=== PATIENT | male | born 1945 | race Caucasian/White ===

== ENCOUNTER 2023-11-02 13:59 | Observation (INO) | payer MEDICARE, SELFPAY ==
[2023-11-02] VITALS (9 sets, daily range): BP systolic 146–187; BP diastolic 81–96; BMI 32.3; BMI 31.4
[2023-11-02 11:12] LABS: % Basophils 0.5 % (0-2); % Eosinophils 1.6 % (0-6); % Immature Granulocytes 0.3 % (0-0.5); % Lymphocytes 25.4 % (20.5-51.1); % Monocytes 7.5 % (1.7-9.3); % Neutrophils 64.7 % (42.2-75.2); Absolute Eosinophils 0.1 10^3/uL (0-0.7); Absolute Lymphocytes 1.9 10^3/uL (1.2-3.4); Absolute Monocytes 0.6 10^3/uL (0.1-0.6); Absolute Neutrophils 4.9 10^3/uL (1.4-6.5); Hematocrit 45.2 % (39.0-52.0); Mean Corp Hgb Conc. 35.4 g/dL (33.0-37.0); Mean Corpuscular Hgb 31.3 pg (27.0-31.0); Mean Corpuscular Volume 88.5 fL (80.0-94.0); Mean Platelet Volume 9.7 fL (7.4-10.4); Nucleated Red Blood Cells % 0 % (-); Platelet Count 164 10^3/uL (130-400); Red Blood Cell Count 5.11 10^6/uL (4.70-6.10); Red Cell Dist. Width 12.9 % (11.5-14.5); White Blood Cell Count 7.6 10^3/uL (4.8-10.8)
[2023-11-02 11:36] LABS: Troponin I < 0.012 ng/ml
--- NOTE | 2023-11-02 11:49 | ED.GENMED ---
History of Present Illness
<Andra Deleon PA-C - Last Filed: 11/02/23 15:57>
General
Chief Complaint: Heart Rate Problem
Source: patient
Exam Limitations: none
Time Seen by Provider: 11/02/23 10:53
Nursing documentation reviewed up to this point in time: agreed with
Travel History
Have you had any contact with someone who has COVID-19?: No
Do you have any symptoms of coronavirus? Fever > 100 degrees, chills, cough, shortness of breath, sore throat, loss of taste or smell, muscle aches, or headache?: No
History of Present Illness
History of Present Illness:
78-year-old male with history of a CABG previously at home [facility] followed by yarn dry room worker with [facility] presents for nonexertional left upper chest pain that started at 7 AM this morning while patient was at rest. Patient says he was
already awake when this pain started and it felt like a dull ache. He says it felt similar to his previous heart attack which was not a crushing chest pain. Patient says he took his vital signs and knew his heart rate was going up into the 80s
which is normally in the 50s or 60s. Patient is very compliant with his Eliquis. At the time of the symptoms he did not get sweaty or nauseated or feel short of breath but he was feeling extremely anxious so at that time he took 25 mg of
metoprolol, 0.5 of Xanax and a nitroglycerin sublingual tab. Within about 20 minutes his symptoms fully resolved. He did watch the monitor of his blood pressure showing that his blood pressure was improving and his heart rate was getting better
however this same type of episode happened 2 days ago but was associated with diaphoresis and nausea at that time. He took the same medications and it did go away. Because this happened twice in a matter of 2 days he knew he needed to be checked.
Patient feels extremely anxious being here. He does have an essential tremor which is made worse when he is also anxious. Patient is under a lot of stress, his son has been on disability and he has been helping to care for him. The patient's son
lost his daughter because of some family stresses so patient has been more anxious than usual. He did not call his yarn dry room worker to tell him he was coming. He does have an appointment within the next month for his 6-month checkup. Patient has not
noticed any fevers or chills, sore throat, cough, abdominal pain, vomiting, diarrhea, leg swelling
Past History
<Andra Deleon PA-C - Last Filed: 11/02/23 15:57>
Past History
ED Past Medical History: CAD, HTN and Hypercholesterolemia
ED Past Surgical History: Cardiac (CABG)
Social History
Tobacco: Non-smoker
Alcohol: None
Drug: None
Personal:
Living: with family
Review of Systems
<Andra Deleon PA-C - Last Filed: 11/02/23 15:57>
Review of Systems
Allergies reviewed?: Yes
All Other Systems: Not applicable
Phy Exam
<KAREN Stratton Last Filed: 11/02/23 15:57>
Physical Exam
Physical Exam:
GENERAL: Alert , anxious
EYE: pupils equal and reactive
NECK: Supple
ENT: o/p clr, mmm.
CARDIAC: Regular rate and rhythm .
LUNGS: Clear breath sounds bilaterally, no acute respiratory distress, no wheezes/rales/rhonchi
chest wall: nontender, normal skin
ABDOMEN: Soft, without focal tenderness, no r/g, no cvat, normal bowel sounds
NEUROLOGICAL: Alert and oriented, no focal neuro deficits, patient has an essential tremor which is worse when he is anxious
SKIN: Warm and dry, skin intact.
MUSCULOSKELETAL: No edema, well perfused. neg arian's sign
PSYCH: Normal and appropriate interaction.
Course
<KAREN Stratton Last Filed: 11/02/23 15:57>
Orders/Labs/Results
Orders:
Orders
11/02/23 Breakfast
Cholesterol Lowering
At Your Request: Limited Participation
Cholesterol Lowering: Sodium, 2 Gram
11/02/23 10:24
EKG [Electrocardiogram (*1)] Urgent
Reason for Study: Chest Pain
EKG- Treatment ONCE
11/02/23 10:56
Complete Blood Count/With Diff Urgent
Glycohemoglobin (HgbA1c) Urgent
Lactate Level [Lactic Acid] Q4H
Troponin I Urgent
11/02/23 11:22
Lorazepam [Ativan] 0.5 mg IV NOW STA
11/02/23 11:23
CR Chest - 2 Views Urgent
Comment:
Reason For Exam: left upper chest pain
11/02/23 11:50
0.9% Sodium Chloride 1000 ml [Nss] 1,000 ml IV BOLUS
11/02/23 12:34
Comprehensive Metabolic Panel Routine
11/02/23 13:33
Admit/Transfer Patient As Directed
Co-Sign Provider:
Level of Care: Observation services
Assign to:: Telemetry
Physician / Group: cm christensen
Diagnosis: chestp ain
Reason for Telemetry: Chest Pain syndromes
Date to Stop Telemetry: 11/04/23
Time to Stop Telemetry: 11:00
Code Status As Directed
Resuscitation Status: Full Code
11/02/23 13:38
Aspirin Chewable [Low Strength Aspirin] 162 mg PO NOW STA
Pantoprazole [Protonix] 40 mg PO NOW STA
11/02/23 14:12
Lactate Level [Lactic Acid] Q4H
11/02/23 15:45
Troponin I Q3H
Comment: at admit & Q3H for 3 total including ED draws, obtain ECG with each level
Alprazolam [Xanax] 0.5 mg PO DAILYPRN PRN
Nitroglycerin Sublingual [Nitrostat (Sublingual)] 0.4 mg SL [id number] PRN
11/02/23 15:45
CARDIOLOGY CONSULT Routine
Consulting Provider: Terrance Pagan
Was physician already notified: Yes
Activity As Directed
Activity Level: As Tolerated
Compression Sleeves [Pneumatic Compression Sleeves] As Directed
Type: Thigh high
ECG as needed As Directed
ECG as needed for:: Chest Pain
Comment: with chest pain x 2 episodes.
INT (Intravenous Needle Therapy) As Directed
Comment: maintain peripheral IV access
Intake/ Output As Directed
Frequency: Per unit guidelines
Vital Signs As Directed
Frequency: q4h
Weight As Directed
Frequency: Daily
DX Deep Vein Thrombosis Video Routine
11/02/23 18:45
Troponin I Q3H
Comment: at admit & Q3H for 3 total including ED draws, obtain ECG with each level
11/02/23 20:00
Apixaban [Eliquis] 5 mg PO BID
Metoprolol [Lopressor] 25 mg PO BID
Pantoprazole [Protonix] 40 mg PO BID
11/03/23 06:00
EKG [Electrocardiogram (*1)] IN AM
Reason for Study: Chest Pain
Basic Metabolic Panel IN AM
Cardiovascular Evaluation IN AM
Complete Blood Count/No Diff IN AM
11/04/23 11:00
DC Protocol for Telemetry ONCE
Abnormal Lab Results
11/02/23 11/02/23
10:56 12:34
MCH 31.3 H pg
(27.0-31.0)
Chloride 108 H mmol/L
(98-107)
Glucose 108 H mg/dl
(70-99)
Lactic Acid 3.0 H mmol/L
(0.7-2.0)
11/02/23 10:56
11/02/23 12:34
Vital Signs
Initial and Last Documented VS:
Initial Vital Signs
Temp Pulse Resp BP Pulse Ox
98 F 57 16 187/95 98
11/02/23 10:21 11/02/23 10:21 11/02/23 10:21 11/02/23 10:21 11/02/23 10:21
Last Documented Vital Signs
Temp Pulse Resp BP Pulse Ox
98 F 62 20 185/83 95
11/02/23 10:21 11/02/23 14:15 11/02/23 14:15 11/02/23 14:00 11/02/23 14:00
<Hola Beckwith, DO - Last Filed: 11/02/23 12:30>
Orders/Labs/Results
Orders:
Orders
11/02/23 Breakfast
Cholesterol Lowering
At Your Request: Limited Participation
Cholesterol Lowering: Sodium, 2 Gram
11/02/23 10:24
EKG [Electrocardiogram (*1)] Urgent
Reason for Study: Chest Pain
EKG- Treatment ONCE
11/02/23 10:56
Complete Blood Count/With Diff Urgent
Glycohemoglobin (HgbA1c) Urgent
Lactate Level [Lactic Acid] Q4H
Troponin I Urgent
11/02/23 11:22
Lorazepam [Ativan] 0.5 mg IV NOW STA
11/02/23 11:23
CR Chest - 2 Views Urgent
Comment:
Reason For Exam: left upper chest pain
11/02/23 11:50
0.9% Sodium Chloride 1000 ml [Nss] 1,000 ml IV BOLUS
11/02/23 12:34
Comprehensive Metabolic Panel Routine
11/02/23 13:33
Admit/Transfer Patient As Directed
Co-Sign Provider:
Level of Care: Observation services
Assign to:: Telemetry
Physician / Group: cm christensen
Diagnosis: chestp ain
Reason for Telemetry: Chest Pain syndromes
Date to Stop Telemetry: 11/04/23
Time to Stop Telemetry: 11:00
Code Status As Directed
Resuscitation Status: Full Code
11/02/23 13:38
Aspirin Chewable [Low Strength Aspirin] 162 mg PO NOW STA
Pantoprazole [Protonix] 40 mg PO NOW STA
11/02/23 14:12
Lactate Level [Lactic Acid] Q4H
11/02/23 15:45
Troponin I Q3H
Comment: at admit & Q3H for 3 total including ED draws, obtain ECG with each level
Alprazolam [Xanax] 0.5 mg PO DAILYPRN PRN
Nitroglycerin Sublingual [Nitrostat (Sublingual)] 0.4 mg SL [id number] PRN
11/02/23 15:45
CARDIOLOGY CONSULT Routine
Consulting Provider: Terrance Pagan
Was physician already notified: Yes
Activity As Directed
Activity Level: As Tolerated
Compression Sleeves [Pneumatic Compression Sleeves] As Directed
Type: Thigh high
ECG as needed As Directed
ECG as needed for:: Chest Pain
Comment: with chest pain x 2 episodes.
INT (Intravenous Needle Therapy) As Directed
Comment: maintain peripheral IV access
Intake/ Output As Directed
Frequency: Per unit guidelines
Vital Signs As Directed
Frequency: q4h
Weight As Directed
Frequency: Daily
DX Deep Vein Thrombosis Video Routine
11/02/23 18:45
Troponin I Q3H
Comment: at admit & Q3H for 3 total including ED draws, obtain ECG with each level
11/02/23 20:00
Apixaban [Eliquis] 5 mg PO BID
Metoprolol [Lopressor] 25 mg PO BID
Pantoprazole [Protonix] 40 mg PO BID
11/03/23 06:00
EKG [Electrocardiogram (*1)] IN AM
Reason for Study: Chest Pain
Basic Metabolic Panel IN AM
Cardiovascular Evaluation IN AM
Complete Blood Count/No Diff IN AM
11/04/23 11:00
DC Protocol for Telemetry ONCE
Abnormal Lab Results
11/02/23 11/02/23
10:56 12:34
MCH 31.3 H pg
(27.0-31.0)
Chloride 108 H mmol/L
(98-107)
Glucose 108 H mg/dl
(70-99)
Lactic Acid 3.0 H mmol/L
(0.7-2.0)
11/02/23 10:56
11/02/23 12:34
Vital Signs
Initial and Last Documented VS:
Initial Vital Signs
Temp Pulse Resp BP Pulse Ox
98 F 57 16 187/95 98
11/02/23 10:21 11/02/23 10:21 11/02/23 10:21 11/02/23 10:21 11/02/23 10:21
Last Documented Vital Signs
Temp Pulse Resp BP Pulse Ox
98 F 62 20 185/83 95
11/02/23 10:21 11/02/23 14:15 11/02/23 14:15 11/02/23 14:00 11/02/23 14:00
<Andra Deleon PA-C - Last Filed: 11/02/23 15:57>
MDM/Problems Addressed
Differential Diagnosis Includes:
angina, acs, anxiety .chest wall pain,
MDM/Problems Addressed:
78 y/o M with h/o CABG, anxiety, tremor; here with exertional dyspnea, chest pain at rest 2 days ago and today at 7 am; relief with nitro, metoprolol and xanax all used at once;
2nd episode in 2 days; concerning the patient
he is under a lot of emotional stress
has essential tremor which gets worse when he is more stressed
ekg nonischemic, trop neg, vitals stable
cxr indep reviewed by me and neg
dr. beckwith saw him, pt doesn't feel comfortable going home cards consult and echo; first trop neg; under alot of stress and very anxious;
<Andra Deleon PA-C - Last Filed: 11/02/23 15:57>
*Critical Care Note
Total Time (30-74mins, 75-104mins- exclusive of procedures): Not Applicable
ED Attending Note
<Andra Deleon PA-C - Last Filed: 11/02/23 15:57>
-
Portions of this chart may have been created with voice recognition software.� Occasional wrong word or��sound alike� substitutions may have occurred due to the inherent limitations of voice recognition software.
<Hola Beckwith, DO - Last Filed: 11/02/23 12:30>
ED Attending Note
Patient seen and examined by attending physician: Yes
I performed the substantive portion of visit, reviewed & personally made and approve the management plan that is documented in note by myself or SIDDHARTHA.: Yes
ED Attending Note:
I have seen and evaluated the patient with a [id number] encounter. I have spoken to the advance practicer provider and involved in the medical history, the physical exam, medical decision making.
Evaluation and management service: agree unless noted differently below.
Results interpretation: agree unless noted differently below.
Focused HPI: 78-year-old male presenting with intermittent chest pain. Did appear to occur randomly a few days ago. At that time, he took nitro and benzodiazepine and symptoms appear to have improved. Happened again earlier today rest which
improved with medications. Patient is worried that it could be his heart given that is a history of CABG. Patient states he can normally exercise without difficulty but states he became short of breath with his recent exercise
Physical exam: Sitting in bed comfortably. Mild pitting edema to lower extremities. Lungs clear. Heart regular rate and rhythm
Medical Decision Making: Given his history and exertional shortness of breath, will admit
Discharge Plan
Departure
Patient Disposition: Admit
Date of Disposition: 11/02/23
Time of Disposition: 12:34
Admit to: Telemetry
Presentation/result/management discussed w/ accepting MD/DO: Hospitalist
Condition: Fair
Covid-19: Not Applicable
Discharge Problem:
Chest pain, Exertional dyspnea
Interventions
Interventions:
*Risk Screen - Suicide Last Done: 11/02/23 10:21
*General Assessment Last Done: 11/02/23 10:21
*Neglect/Abuse Screening Last Done: 11/02/23 10:21
ED- Fall Risk Assessment Last Done: 11/02/23 15:54
*ED COVID-19 Vaccine History Last Done: 11/02/23 15:54
*Nursing Disposition Last Done: 11/02/23 15:54
ED- Cardiac Assessment Last Done: 11/02/23 12:00
ED- Pulmonary Assessment Last Done: 11/02/23 12:00
[2023-11-02] MEDS: ATIVAN 0.5 MG IV (11:58)
[2023-11-02] MEDS: NSS 1000 IV (12:02)
[2023-11-02 12:49] LABS: ALT (SGPT) 20 U/L (0-50); AST (SGOT) 23 U/L (17-59); Alkaline Phosphatase 55 U/L (38-126); Blood Urea Nitrogen 14 mg/dl (9-20); Calcium 9.7 mg/dl (8.4-10.2); Carbon Dioxide 29 mmol/L (22-30); Chloride 108 mmol/L (98-107); Estimated Creatinine Clearance 93 ml/min; Glucose 108 mg/dl (70-99); Potassium 4.6 mmol/L (3.5-5.1); Sodium 140 mmol/L (135-145); Total Bilirubin 0.8 mg/dl (0.2-1.3); Total Protein 6.6 g/dl (6.3-8.2); eGFR > 60.00
--- NOTE | 2023-11-02 13:00 | HPS.HSE ---
Addendum entered and electronically signed by Winter Latif MD 11/02/23 16:33:
patient requests ativan instead of xanax for anxiety - changed in chart
Addendum entered and electronically signed by Winter Latif MD 11/02/23 14:32:
etiology of elevated lactate unclear, may be related to tachypnea from anxiety. patient does not appear to be dehydrated, no e/o sepsis.
s/p 1L fluid bolus, will continue to monitor.
Addendum entered and electronically signed by Winter Latif MD 11/02/23 14:29:
I saw and examined the patient.
The DESIGN LEAD's note was reviewed and I agree with the note.
Comment:
Mr. Alejandro Traylor is a 78 yo man with hx CAD s/p CABG 15 years ago, PE on Eliquis, CAD, HTN, HLD presented to the ER with left-sided chest discomfort non-radiating that occurred when sitting this morning and worsened when he walked around. H etook a
nitro and metoprolol and pain resolved. Currently patient is pain free. Triage VS: T 98, P 57, RR 16, BP 187/95, SpO2 98%. Labs unremarkable, initial Troponin negative.
CXR
IMPRESSION:
No acute cardiopulmonary process.
Hiatal hernia again noted.
EKG: sinus bradycardia with 1st degree AV block, LVH, no ST elevation/depression.
Given cardiac risk factors and history that pain worsened with exertion and was relieved with nitro, patient will be admitted for ACS rule out. Trend Troponins. Cardiology consult. If Troponin becomes elevated, hold evening Eliquis and start IV
heparin gtt.
Patient also describes a lot of anxiety in his life and took a Xanax this morning, was given lorazepam in the ER.
Original Note:
Family Physician
-
Family Physician: Hola Chapman
Chief Complaint
-
chest pain
History of Present Illness
78-year-old male with history of a CABG. pulmonary embolism, coronary artery disease, hypertension, hyperlipidemia presented to us with left-sided nonradiating chest pain while he was sitting on a chair this morning. Patient stated it got little
worse when he got up and move around. Denied any short of breath. Patient felt the same pain 2 days ago which resolved with nitroglycerin, metoprolol. At present he does not have any pain. Pain resolved after taking nitro, metoprolol, Eliquis.
Patient denies any headache, dizziness, syncopal episode. Patient denies any abdominal pain, nausea, vomiting, diarrhea. Patient denies dysuria hematuria. Patient is under a lot of stress. Patient follows cardiology at [facility].
Troponin negative, labs stable. Admitted for further management
Medical History
Past Medical History
Past Medical History: Reports Other
Additional Past Medical History:
Hypertension
Coronary artery disease
Hyperlipidemia
Pulmonary embolism
Past Surgical History: Reports Other
Additional Past Surgical History:
Coronary artery bypass graft
Social History
Tobacco: Non-smoker
Alcohol: None
Drug: None
Family History
Family History: Not pertinent
Allergies / Home Medications
Allergies reflects when Allergies were last updated in [facility].
Home Medications with original date entered in [facility]
Allergy/Medication List:
Allergies
Allergy/AdvReac Type Severity Reaction Status Date / Time
No Known Allergies Allergy Verified 11/02/23 10:20
Home Medications
acetaminophen 325 mg tablet 650 mg PO Q4HPRN PRN fever 11/20/21
esomeprazole magnesium 20 mg tablet,delayed release (Nexium 24HR) 20 mg PO DAILY Gastrointestinal issue 11/20/21
gabapentin 100 mg capsule 100 mg PO TID take with 300mg 11/20/21
gabapentin 300 mg capsule 300 mg PO TID take with 100mg 11/20/21
mesalamine 0.375 gram capsule,extended release 24 hr 0.375 gm PO DAILYPRN PRN ibs 11/20/21
metoprolol tartrate 25 mg tablet 25 mg PO BID Blood pressure 11/20/21
apixaban 5 mg tablet (Eliquis) 5 mg PO BID 30 days #74 tabs 11/25/21
tramadol 50 mg tablet 50 mg PO Q6HPRN PRN moderate to severe pain 5 days #20 tabs 11/25/21
Review of Systems
-
Constitutional: Reports No Symptoms
EENT: Reports No Symptoms
Respiratory: Reports No Symptoms
Cardiac: Reports Chest Pain
Abdomen/GI: Reports No Symptoms
: Reports No Symptoms
Musculoskeletal: Reports No Symptoms
Skin: Reports No Symptoms
Neurological: Reports No Symptoms
Endocrine: Reports No Symptoms
Hematologic/Lymphatic: Reports No Symptoms
Psych: Reports No Symptoms
Physical Exam
Vital Signs
Vital Signs
Temp Pulse Resp BP Pulse Ox
98 F 58 22 152/96 98
11/02/23 10:21 11/02/23 11:15 11/02/23 11:15 11/02/23 10:44 11/02/23 11:15
Physical Exam
General: Well Developed, Well Nourished and No Apparent Distress
HEENT: NormoCephalic, Moist mucous membranes and Atraumatic
Respiratory: Clear
Cardiac: S1/S2 and Regular Rhythm; No Murmur or Rub
GI: Soft, Non Tender, Non Distended and Normal Bowel Sounds; No Organomegaly
Rectal: Deferred by Provider
Musculoskeletal: No Clubbing, No Cyanosis and No Edema
Skin: No Rash
Neuro: AO x 3 and Nonfocal/grossly intact
Psych: Calm
Laboratory Results
-
11/02/23 10:56
11/02/23 12:34
Laboratory Results
Lactic Acid 3.0 mmol/L (0.7-2.0) H 11/02/23 10:56
Total Bilirubin 0.8 mg/dl (0.2-1.3) 11/02/23 12:34
AST 23 U/L (17-59) 11/02/23 12:34
ALT 20 U/L (0-50) 11/02/23 12:34
Alkaline Phosphatase 55 U/L (38-126) 11/02/23 12:34
Troponin I < 0.012 ng/ml 11/02/23 10:56
Data Reviewed
-
Diagnostic Radiology: Report Reviewed by me
Lab Data: Labs Reviewed by me
Impression/Plan
-
#exertional chest pain unclear cause likely from stress/anxiety r/o ACS
-chest x ray with No acute cardiopulmonary process.Hiatal hernia again noted.
-EKG with SINUS BRADYCARDIA WITH 1ST DEGREE A-V BLOCK LEFT AXIS DEVIATION LEFT VENTRICULAR HYPERTROPHY WITH QRS WIDENING
-trop negative
-trend trop
-EKG prn and in AM
-cardiology consulted
-received a dose of aspirin in ER
-ctm
-nitro continued
-received asa at home
-nitro continued
-if trop trending up hold eliquis and initiate on heparin drip
#lactic acidosis
-3.0, afebrile
-ctm
-trend lactic
#hxt of PE
-eliquis continued
#GERD
-PPI continued
#essential htn
-BP stable
-metoprolol continued
#DVT prophylaxis
-eliquis
#CODE status
-full code
[2023-11-02] MEDS: PROTONIX 40 MG PO ×2 (14:13→19:44)
[2023-11-02] MEDS: LOW STRENGTH ASPIRIN 162 MG PO (14:13)
--- NOTE | 2023-11-02 14:34 | CON.CAR ---
Addendum entered and electronically signed by Terrance Pagan MD 11/02/23 19:00:
I note he is hypertensive, add amlodipine 5 mg a day.
Addendum entered and electronically signed by Terrance Pagan MD 11/02/23 18:54:
78-year-old man with history of CABG in 2006, pulmonary embolus 2021, now with chest discomfort since Sunday, possibly better with nitro, followed by Dr. Jeremy Sanchez. 2 episodes of pain, 1 Sunday, 1 Sunday. Seemingly better with beta-ritika
and nitrates. Symptoms are somewhat similar compared to 2006. Of note, on treadmill Sunday, he had substernal burning which is new. Scheduled to see Dr. Sanchez in November and was scheduled for stress test in that timeframe, came to [place]
related to recent changes at [place].
PMH: CAD, PAF, pulmonary embolism October 2021, hypertension, hyperlipidemia, statin intolerance, anxiety, GERD/hiatal hernia, tremor, IBS
PSH: CABG 2006
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
FH: Not pertinent
Allergies: None
Meds: Reviewed
Review of systems negative except as above
148/91, pulse 62, head neck exam unremarkable, lungs clear, soft systolic murmur at base, abdomen benign, extremity without edema, pulses okay, neuro nonfocal
Hemoglobin 16, platelets 164, BUN and creatinine 14, 0.8, troponin undetectable,
chest x-ray no active disease, hiatal hernia
Echo today: EF 55-60%, mild LVH, mild MR, mildly dilated left atrium, aortic sclerosis with trace AI, pulmonary pressure is normal
ECG marked sinus bradycardia, first-degree AV block left axis deviation
Impression:
Chest pain, negative troponin x 1
CAD/CABG 2006
Paroxysmal atrial fibrillation on Eliquis
Pulmonary embolus 2021
Hypertension
Hyperlipidemia
Statin intolerance
Essential tremor
Hiatal hernia/GERD
Anxiety
Plan:
Will observe overnight, if stable would be reasonable to discharge and arrange for outpatient follow-up and consideration of noninvasive versus invasive testing.
Given his history he really should be on PCS K9 inhibitor or a small interfering RNA, possibly bempedoic acid. We will discuss further tomorrow.
Original Note:
Consultation
Consultation Request
Date/Time Consultation Requested: 11/02/2023
Date/Time Consultation Performed: 11/02/2023 at 1400
Requesting Provider: Dr. Latif
Performing Provider: Dr. ERAN Pagan
Reason for Consultation: Chest pain
Medical History
-
History of Present Illness:
HPI: Alejandro is a 78-year-old male with past medical history of CAD status post CABG x 4, paroxysmal atrial fibrillation, pulmonary embolism, hypertension, hyperlipidemia, and anxiety who presents to ER for evaluation of chest pain. He reports
chest pain initially started on Sunday. He states he was at home sitting in a chair resting when suddenly he broke out in cold sweats with left-sided chest discomfort. He states the pain reminded him of his prior angina and he took nitro,
metoprolol, and Eliquis. Pain then resolved after a few minutes. He continued to feel well until this morning, again while he was sitting in a chair resting, he had recurrence of the pain along the left side of his chest. This time he did not
have the associated diaphoresis. He states given recurrence of pain that concerned him for angina, he came to [facility] for evaluation. He follows with Dr. Cyrus Sanchez with [facility] and states he has been stable from a
cardiac standpoint. He reports he has never had to take nitroglycerin since his heart attack approximately 15 years ago. Today again when he had his symptoms, he took nitro, metoprolol, Xanax, and Eliquis and pain again resolved after a few
moments. In ER, he has been pain-free, but states he did have some mild chest discomfort in the setting of anxiety related to a blood draw. Workup in the emergency room has been benign so far with negative troponin x 1. EKG is without any acute
ischemic changes and his chest x-ray was negative. He does report that in the setting of his prior PR and quadruple bypass, workup initially was also negative. He is admitted for further workup and evaluation. Cardiology consulted given
significant cardiac history and chest pain.
PMH:
CAD status post CABG x 4 (FERREIRA to LAD, SVG sequenced to OM1, OM2 branches, and PDA) 2006
Paroxysmal atrial fibrillation
h/o pulmonary embolism 10/2021
Hypertension
Hyperlipidemia
Statin intolerance
Anxiety
GERD
Glucose intolerance
Essential tremor
IBS
Past Medical History
Past Medical History: Other (In HPI)
Past Surgical History: Cardiac (CABG x4)
Social History
Tobacco: Former Smoker
Alcohol: None
Drug: None
Personal:
Living: With Family
Employment: Retired
Family History
Family History: Reviewed & Not Pertinent
Allergies / Home Medications
Allergy/AdvReac Type Severity Reaction Status Date / Time
No Known Allergies Allergy Verified 11/02/23 10:20
Medication Instructions Recorded Confirmed Type
metoprolol tartrate 25 mg tablet 25 mg PO BID Blood pressure 11/20/21 11/02/23 History
apixaban 5 mg tablet (Eliquis) 5 mg PO BID 30 days #74 tabs 11/25/21 11/02/23 Rx
alprazolam 0.5 mg tablet 0.5 mg PO DAILYPRN PRN 11/02/23 11/02/23 History
anxiety/tremor
ibuprofen 200 mg tablet (Advil) 200 mg PO DAILYPRN PRN mild pain 11/02/23 11/02/23 History
nitroglycerin 0.4 mg sublingual 0.4 mg sublingual [id number] PRN 11/02/23 11/02/23 History
tablet chest pain
omeprazole magnesium 20 mg 20 mg PO BID 11/02/23 11/02/23 History
capsule,delayed release
Review of Systems
-
History Source: Patient
All other systems: Negative unless noted
Physical Exam
Vital Signs
Temp Pulse Resp BP Pulse Ox
98 F 62 20 185/83 95
11/02/23 10:21 11/02/23 14:15 11/02/23 14:15 11/02/23 14:00 11/02/23 14:00
Lab Results
11/02/23 10:56
11/02/23 12:34
Troponin I < 0.012 ng/ml 11/02/23 10:56
Physical Exam
General: Well Developed, Well Nourished and No Apparent Distress
HEENT: Normocephalic, Anicteric and Moist Mucous Membranes
Respiratory: Clear and Non Labored Respirations
Cardiac: S1/S2 and Regular Rhythm
GI: Soft, Non Tender and Non Distended
Musculoskeletal: No Clubbing, No Cyanosis and Edema
Skin: Warm and Dry
Neuro: AO x 3 and Nonfocal/Grossly Intact
Psych: Calm
Impression / Plan
-
PCP: Dr. Chapman
Cardiology: Dr. Cyrus Sanchez ([facility] [phone])
Impression:
Presented with chest pain
CAD status post CABG x 4 (FERREIRA to LAD, SVG sequenced to OM1, OM2 branches, and PDA) 2006
Paroxysmal atrial fibrillation
h/o pulmonary embolism 10/2021
Hypertension
Hyperlipidemia
Statin intolerance
Anxiety
GERD
Glucose intolerance
Essential tremor
IBS
Nuclear stress test 11/2019: Small distal anteroapical scar, EF normal at 61% with dyskinesis of the distal anteroapical segment. Stress ECG negative for ischemia.
Echo 01/16/2022: Suboptimal study, EF 60 to 65%, aortic sclerosis without stenosis, mild TR, abnormal color flow across the atrial septum suggestive of a small PFO with [id number] shunting
Echo 11/02/2023: Study pending
Plan:
-Presented with chest pain which he reports is similar to his prior angina. Pain occurred at rest both 2 days ago and today. Denies any exertional symptoms.
-Initial troponin negative, continue to trend.
-EKG reviewed and shows SR with no acute ischemic changes noted.
-Check echo.
-Remains chest pain free while in ER at this time.
-Patient reports history of atrial fibrillation post op after CABG with no prolonged symptomatic episodes recently
-Continue Eliquis 5mg BID for anticoagulation.
-HR overall stable on lopressor 25mg BID.
-BP elevated in ER, continue to follow for now. May need another antihypertensive.
-Requested and reviewed records from primary business management consultant including last office visit, last echo, last stress test, and prior cath report.
-Check CVE, Hgb A1c in AM.
-Not on statin given prior history of myalgias.
HPI: Alejandro is a 78-year-old male with past medical history of CAD status post CABG x 4, paroxysmal atrial fibrillation, pulmonary embolism, hypertension, hyperlipidemia, and anxiety who presents to ER for evaluation of chest pain. He reports
chest pain initially started on Sunday. He states he was at home sitting in a chair resting when suddenly he broke out in cold sweats with left-sided chest discomfort. He states the pain reminded him of his prior angina and he took nitro,
metoprolol, and Eliquis. Pain then resolved after a few minutes. He continued to feel well until this morning, again while he was sitting in a chair resting, he had recurrence of the pain along the left side of his chest. This time he did not
have the associated diaphoresis. He states given recurrence of pain that concerned him for angina, he came to [facility] for evaluation. He follows with Dr. Cyrus Sanchez with [facility] and states he has been stable from a
cardiac standpoint. He reports he has never had to take nitroglycerin since his heart attack approximately 15 years ago. Today again when he had his symptoms, he took nitro, metoprolol, Xanax, and Eliquis and pain again resolved after a few
moments. In ER, he has been pain-free, but states he did have some mild chest discomfort in the setting of anxiety related to a blood draw. Workup in the emergency room has been benign so far with negative troponin x 1. EKG is without any acute
ischemic changes and his chest x-ray was negative. He does report that in the setting of his prior PR and quadruple bypass, workup initially was also negative. He is admitted for further workup and evaluation. Cardiology consulted given
significant cardiac history and chest pain.
Data Reviewed
-
EKG: Tracing Personally Visualized and interpreted
Radiology: Report Reviewed by me
Labs: Labs Reviewed by me
Old Records: Requested and Reviewed
[2023-11-02] MEDS: APRESOLINE 10 MG IV (16:20)
[2023-11-02] MEDS: ATIVAN 0.5 MG PO ×2 (16:48→21:46)
[2023-11-02 16:57] LABS: Troponin I < 0.012 ng/ml
--- NOTE | 2023-11-02 17:03 | PTCARENOTE ---
Arrived to unit and ambulated to bed. No complaints @ this time. Oriented to room. Call saenz within reach.
[2023-11-02] MEDS: NORVASC 5 MG PO (19:43)
[2023-11-02] MEDS: LOPRESSOR 25 MG PO (19:44)
[2023-11-02] MEDS: ELIQUIS 5 MG PO (19:44)
[2023-11-02 20:22] LABS: Troponin I < 0.012 ng/ml
--- NOTE | 2023-11-03 01:03 | PTCARENOTE ---
Patient looking to speak with attending about increasing dose of Ativan. Patient feelings like this medication has been working better for his tremors and anxiety than Xanax
[2023-11-03] MEDS: TYLENOL 650 MG PO (02:04)
[2023-11-03 03:08] VITALS: BP 143/64
[2023-11-03 06:00] VITALS: BMI 31.0
[2023-11-03 06:18] LABS: Hematocrit 44.6 % (39.0-52.0); Hemoglobin 15.6 g/dL (13.0-18.0); Mean Corpuscular Hgb 31.1 pg (27.0-31.0); Mean Corpuscular Volume 88.8 fL (80.0-94.0); Platelet Count 162 10^3/uL (130-400); Red Blood Cell Count 5.02 10^6/uL (4.70-6.10); Red Cell Dist. Width 12.8 % (11.5-14.5); White Blood Cell Count 7.3 10^3/uL (4.8-10.8)
[2023-11-03 06:53] LABS: Blood Urea Nitrogen 14 mg/dl (9-20); Calcium 9.6 mg/dl (8.4-10.2); Carbon Dioxide 25 mmol/L (22-30); Chloride 109 mmol/L (98-107); Estimated Creatinine Clearance 91 ml/min; Glucose 90 mg/dl (70-99); HDL Cholesterol 40 mg/dl; LDL Cholesterol, Calculated 59 mg/dl; Potassium 4.5 mmol/L (3.5-5.1); Sodium 137 mmol/L (135-145); Total Cholesterol 120 mg/dl (50-199); Triglyceride 107 mg/dl (10-149); Very Low Density Lipoprotein 21 mg/dl (0-30); eGFR > 60.00
[2023-11-03 07:15] VITALS: BP 163/77
[2023-11-03 08:44] LABS: Glycohemoglobin (HgbA1c) 5.9 % (4.0-5.6)
[2023-11-03] MEDS: NORVASC 5 MG PO (09:05)
[2023-11-03] MEDS: LOPRESSOR 25 MG PO (09:06)
[2023-11-03] MEDS: ELIQUIS 5 MG PO (09:06)
[2023-11-03] MEDS: PROTONIX 40 MG PO (09:06)
[2023-11-03] MEDS: ATIVAN 0.5 MG PO (09:15)
[2023-11-03 11:10] VITALS: BP 142/83
--- NOTE | 2023-11-03 11:53 | W.PN.CARDCBS ---
Addendum entered and electronically signed by Terrance Pagan MD 11/03/23 15:35:
Patient had episodes of paroxysmal atrial fibrillation with rapid ventricular response immediately prior to discharge. These were asymptomatic. When he presented for admission, he had checked his pulse and blood pressure and his heart rate was
normal. Therefore, it seems that his atypical chest pain is not related to paroxysmal atrial fibrillation. Furthermore, he has a [employer] watch and no alerts. I advised him to make sure his alerts were on.
I reviewed his paroxysmal atrial fibrillation and the options. He is already anticoagulated. His beta-ritika cannot be uptitrated. Options would include continuation of the current regimen, consideration of antiarrhythmic therapy, and possibly
even ablation, though confirmation of atrial fibrillation burden symptoms would be mandated first.
We agreed that it would be reasonable to make no further changes beyond those made at discharge. He will inform Dr. Sanchez that atrial fibrillation was seen, and he has been instructed that he will need an outpatient bus driver/monitor. He can still be
discharged from my standpoint without medication changes beyond what was previously recommended. I instructed him to monitor for atrial fibrillation at home.
Original Note:
Today's Communication / Plan
-
Okay for discharge
See below for medications
Impression / Plan
-
PCP: Dr. Chapman
Cardiology: Dr. Cyrus Sanchez ([facility] [phone])
Impression:
Presented with chest pain
CAD status post CABG x 4 (FERREIRA to LAD, SVG sequenced to OM1, OM2 branches, and PDA) 2006
Paroxysmal atrial fibrillation
h/o pulmonary embolism 10/2021
Hypertension
Hyperlipidemia
Statin intolerance
Anxiety
GERD
Glucose intolerance
Essential tremor
IBS
Nuclear stress test 11/2019: Small distal anteroapical scar, EF normal at 61% with dyskinesis of the distal anteroapical segment. Stress ECG negative for ischemia.
Echo 01/16/2022: Suboptimal study, EF 60 to 65%, aortic sclerosis without stenosis, mild TR, abnormal color flow across the atrial septum suggestive of a small PFO with [id number] shunting
Echo 11/02/2023: EF 55-60%, mild LVH, mild MR, mildly dilated left atrium, trace aortic regurgitation, small PFO, pulmonary artery systolic pressure 29
Plan:
He seems stable from a cardiac standpoint, and from my vantage point he can be discharged.
I wonder if hypertension is an underlying issue. His troponin is negative, his EKG is unchanged.
I am surprised to see his LDL is at target without a statin therapy.
His blood pressure is improved with the addition of amlodipine last night and this morning. Still not at target.
Discussed at some length with patient and . I recommended prompt follow-up to Dr Sanchez who can determine whether medical regimen is appropriate and if noninvasive or invasive cardiac testing is warranted. They voiced agreement.
Recommended cardiac medications at discharge:
Metoprolol tartrate 25 mg twice daily
Amlodipine 5 mg twice daily (new, I warned regarding edema)
Apixaban 5 mg twice daily
Avoid nonsteroidals
Follow-up to Dr. Sacnhez
HPI: Alejandro is a 78-year-old male with past medical history of CAD status post CABG x 4, paroxysmal atrial fibrillation, pulmonary embolism, hypertension, hyperlipidemia, and anxiety who presents to ER for evaluation of chest pain. He reports
chest pain initially started on Sunday. He states he was at home sitting in a chair resting when suddenly he broke out in cold sweats with left-sided chest discomfort. He states the pain reminded him of his prior angina and he took nitro,
metoprolol, and Eliquis. Pain then resolved after a few minutes. He continued to feel well until this morning, again while he was sitting in a chair resting, he had recurrence of the pain along the left side of his chest. This time he did not
have the associated diaphoresis. He states given recurrence of pain that concerned him for angina, he came to [facility] for evaluation. He follows with Dr. Cyrus Sanchez with [facility] and states he has been stable from a
cardiac standpoint. He reports he has never had to take nitroglycerin since his heart attack approximately 15 years ago. Today again when he had his symptoms, he took nitro, metoprolol, Xanax, and Eliquis and pain again resolved after a few
moments. In ER, he has been pain-free, but states he did have some mild chest discomfort in the setting of anxiety related to a blood draw. Workup in the emergency room has been benign so far with negative troponin x 1. EKG is without any acute
ischemic changes and his chest x-ray was negative. He does report that in the setting of his prior IN and quadruple bypass, workup initially was also negative. He is admitted for further workup and evaluation. Cardiology consulted given
significant cardiac history and chest pain.
Progress Note - Manager Office Services
Subjective
Date of Service: November 03, 2023:
Slept poorly, under stress but no further symptoms. at bedside
Allergies: None
Outpatient medications: Alprazolam, apixaban 5 mg twice daily, omeprazole metoprolol tartrate 25 mg twice daily, ibuprofen
Current medications: Amlodipine 5 mg daily, Eliquis 5 mg twice daily, metoprolol tartrate 25 mg twice daily, pantoprazole
PMH/PSH/SH/FH: Reviewed
ROS negative except as above
Normal CBC, BUN and creatinine 14 and 0.8, potassium 4.5, troponin undetectable, LDL 59, total cholesterol 120
ECG sinus bradycardia, first-degree AV block, left anterior fascicular block, LVH
Objective
Labs:
11/03/23 06:03
11/03/23 06:03
Labs
Hgb 15.6 g/dL (13.0-18.0) 11/03/23 06:03
Hct 44.6 % (39.0-52.0) 11/03/23 06:03
Plt Count 162 10^3/uL (130-400) 11/03/23 06:03
Sodium 137 mmol/L (135-145) 11/03/23 06:03
Potassium 4.5 mmol/L (3.5-5.1) 11/03/23 06:03
BUN 14 mg/dl (9-20) 11/03/23 06:03
Creatinine 0.8 mg/dL (0.7-1.3) 11/03/23 06:03
Glucose 90 mg/dl (70-99) 11/03/23 06:03
Troponins
11/02/23 11/02/23 11/02/23
10:56 16:22 19:54
Troponin I < 0.012 < 0.012 < 0.012
Vital Signs and I&O:
Vital Signs
Temp Pulse Resp BP Pulse Ox
36.5 C 56 18 142/83 96
11/03/23 11:10 11/03/23 11:10 11/03/23 11:10 11/03/23 11:10 11/03/23 11:10
Vital Signs
Temp Pulse Resp BP Pulse Ox
36.5 C 56 18 142/83 96
11/03/23 11:10 11/03/23 11:10 11/03/23 11:10 11/03/23 11:10 11/03/23 11:10
Intake & Output
11/01/23 11/02/23 11/03/23 11/04/23
07:59 07:59 07:59 07:59
Intake Total 720 / 720
Output Total 1325 / 1325
Balance -605 / -605
Physical Exam
Physical Exam
BP elevated but better, relatively wide pulse pressure, head neck exam unremarkable, lungs are clear, regular rate and rhythm soft systolic murmur, abdomen benign, extremities without significant edema, neuro nonfocal
--- NOTE | 2023-11-03 12:32 | CM ---
IA completed with pt at bedside.
Pt is a 78yr old admitted on OBS for Chest Pain. TA was given and signed. Copy on chart.
At baseline, pt is indep. and lives with his in a multi level home with 3ste.
Pt has no current use/hx of DME/SNF. Has used [facility].
PCP; [facility] [address]
PLAN; Anticipates dc with no needs.
--- NOTE | 2023-11-03 14:25 | W.PN.HOSP.TC ---
Today's Communication/Plan
-
Discharge
Assessment / Plan
Assessment / Plan
78-year-old male admitted because of exertional chest pain
No more pain.
On examination awake alert oriented
Cardiovascular system S1-S2 appreciated
Chest clear to auscultation
Nil to trace pedal edema noted
# Chest pain troponin negative
Hiatal hernia noted
Chest pain likely related to HTN urgency
Continue PPI likely musculoskeletal or GI related cannot be ruled out
Cardiology evaluated no further recommendations
Denies NSAID use
# Elevated lactate on admission-soon normalized
No evidence of infection or sepsis
Likely abnormal bleeding without significance
# History of PE-on Eliquis-continue that
# H/O CAD
# GERD-continue PPI
# Hypertension-continue metoprolol
# Tremors-patient was seen at [facility] and started on Xanax as nothing else worked.
Discussed with the patient that Xanax/benzos may not be a good choice at his age and he should explore other options.
He requested prescription for Ativan-we had to defer to [facility] as he is under their care and already on Xanax from them.
He states that they cannot increase beta-blockers because of his bradycardia
He will contact them
# Hemoglobin A1c 5.9
# Full CODE
D/W Family at bed side
Patient upset about observation status.Advised to call Billing Sunday.
Anticipated Discharge: Today
Subjective/Interval History
-
Date of Service: November 03, 2023
Objective Data
-
Labs:
Laboratory Results
11/03/23
06:03
WBC 7.3
Hgb 15.6
Hct 44.6
Plt Count 162
Sodium 137
Potassium 4.5
Chloride 109 H
Carbon Dioxide 25
BUN 14
Creatinine 0.8
Glucose 90
Calcium 9.6
Vital Signs:
Vital Signs
Temp Pulse Resp BP Pulse Ox
97.7 F 56 18 142/83 96
11/03/23 11:10 11/03/23 11:10 11/03/23 11:10 11/03/23 11:10 11/03/23 11:10
I&O
11/02/23 11/03/23 11/04/23
06:59 06:59 06:59
Intake Total 720 / 720
Output Total 1325 / 1325
Balance -605 / -605
--- NOTE | 2023-11-03 15:01 | W.DS.TRANS ---
Addendum entered and electronically signed by Khalif Andre MD 11/04/23 07:34:
Dictation- [id number]
Original Note:
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
-
Discharge Instructions:
Discharge Diagnosis/Procedures Chest pain, hypertension, history of PE,
coronary disease, GERD, tremors
Diet 2 Gram Sodium
Activity As tolerated
Driving Restrictions As prior to admission
Blood Work Hemoglobin A1c in 3 months
Instructions:
Stand-Alone Forms:
Changes to Home Medications: Yes
Discharge Medications:
DC Medications w/original date entered in [employer]
metoprolol tartrate 25 mg tablet 25 mg PO BID Blood pressure 11/20/21
alprazolam 0.5 mg tablet 0.5 mg PO DAILYPRN PRN anxiety/tremor 11/02/23
nitroglycerin 0.4 mg sublingual tablet 0.4 mg sublingual [id number] PRN chest pain 11/02/23
omeprazole magnesium 20 mg capsule,delayed release 20 mg PO BID Gastrointestinal Issue 11/02/23
amlodipine 5 mg tablet 5 mg PO DAILY Blood pressure #60 tabs 11/03/23
apixaban 5 mg tablet (Eliquis) 5 mg PO BID Blood clot prevention/tx 30 days #74 tabs 11/03/23
Home Medication Changes
new
amlodipine 5 mg tablet 5 mg PO DAILY Blood pressure #60 tabs 11/03/23
Pending Results: Yes
Additional Pending Results:
Hep C AB
[2023-11-03 15:15] VITALS: BP 154/87
--- NOTE | 2023-11-03 15:56 | PTCARENOTE ---
Patient with noted Afib on monitor prior to D/C. Cardiology reviewed tele monitor and spoke with patient.
[2023-11-05 19:41] LABS: Hepatitis C Antibody Negative (Negative)
== END 2023-11-03 16:20 | disposition home or self-care (01) ==
LOC: 4 EAST ACU 13:59
PROVIDERS: Registered Nurse; ADMITTING PHYSICIAN Student in an Organized Health Care Education/Training Program; ATTENDING PHYSICIAN Hospitalist; CONSULT PHYSICIAN Internal Medicine Cardiovascular Disease; EMERGENCY PHYSICIAN Student in an Organized Health Care Education/Training Program; FAMILY PHYSICIAN Internal Medicine
DX: R07.89 Other chest pain (principal); I10 Essential (primary) hypertension; G25.0 Essential tremor; I25.10 Atherosclerotic heart disease of native coronary artery without angina pectoris; I48.0 Paroxysmal atrial fibrillation; E78.5 Hyperlipidemia, unspecified; R06.00 Dyspnea, unspecified; K21.9 Gastro-esophageal reflux disease without esophagitis; F41.9 Anxiety disorder, unspecified; K44.9 Diaphragmatic hernia without obstruction or gangrene; E87.20 Acidosis, unspecified; I25.2 Old myocardial infarction; Z87.891 Personal history of nicotine dependence; Z86.711 Personal history of pulmonary embolism; Z79.01 Long term (current) use of anticoagulants; Z95.1 Presence of aortocoronary bypass graft
CPT/HCPCS: 71046; 80048; 80053; 80061; 83036; 83605; 84484; 85025; 85027; 86803; 93005; 93306; 96361; 96374; 99285; G0378